=== PATIENT | female | born 1990 | race Caucasian/White ===

== ENCOUNTER 2025-07-28 12:52 | Emergency (ER) | payer MEDICAID, SELFPAY ==
[2025-07-28 12:57] VITALS: BP 155/103; PULSE 90; O2SAT 100
[2025-07-28 13:00] VITALS: BP 161/117; PULSE 82; RESP 15; O2SAT 99
[2025-07-28 13:05] VITALS: BP 155/103; PULSE 88; RESP 16; TEMP 37.2; O2SAT 99; BMI 31.2
--- NOTE | 2025-07-28 13:06 | ECG_ITS ---
APPROVED REPORT Exam: Resting ECG HR:81 bpm ECG Measurements Heart Rate 81 AXES MA 145 P 61 QRSd 89 QRS 43 QT 361 T 67 QTc 398 Conclusion SINUS RHYTHM NORMAL ECG UNCONFIRMED REPORT Normal sinus rhythm. No STEMI Electronically signed by : TO JORDAN, 07/29/2025 15:29:11
--- NOTE | 2025-07-28 13:06 | ED_ITS ---
<Statement entered by Jose Camacho MD - 07/29/25 15:37> I was consulted by the GARIMA, and we discussed the complexity of the problems being addressed. I approve the treatment and management plan for this patient's care in the emergency department, thus performing a substantive portion of the medical decision making. Jose Camacho MD Discharge Plan Disposition Patient Disposition: Home, Self-Care Condition: Good Prescriptions Prescriptions: New hydroxyzine pamoate [Vistaril] 25 mg capsule 25 mg PO Q6H PRN (Reason: anxiety) Qty: 30 0RF Referrals Follow up/Referrals: Provider,Referral, [Primary Care Provider, Medical] - See instructions Activity Restrictions/Add. Instructions Additional Instructions/Restrictions: Please return to the emergency department with any worsening signs or symptoms. Please continue to take all your medication as prescribed, please keep your follow-up with Michaela in the upcoming days. Please utilize the antianxiety medication as needed, I recommend ibuprofen Tylenol and other [id number] anti-inflammatory medication as needed for symptomatic relief. Clinical Impressions Clinical Impression: Acute drug withdrawal syndrome Instructions Patient Instructions: DI for Drug or Alcohol Withdrawal Print Language Print Language: Faroese Discharge ED Provider: Jose Camacho General Adult HPI General Chief complaint: Altered Mental Status Stated complaint: chills, nausea, light headed, High HR Time Seen by Provider: 07/28/25 13:03 Mode of Arrival: Ambulatory Source of Information: Patient and Medical Record Limitations: No Limitations History of Present Illness HPI narrative: 35-year-old female presents the emergency department with a less than 24-hour history of restlessness, insomnia, generalized fatigue and malaise, nausea heart palpitations, hot and cold flashes , that started last night, patient states that she believes she is withdrawing from kratom . Patient states that she has been utilizing kratom to 30 mg tablets daily for quite some time, she has been trying to taper herself off slowly for the last week, last dose was 15 mg tablet yesterday. Patient denies any vomiting chest pain shortness of breath, no fever no chills, no abdominal pain, no constipation or diarrhea no urinary symptomatology, patient has no real relevant past medical history takes no other medication at home, does have prior history of marijuana use, is a current everyday tobacco user (vapes), denies any other illicit drug use. States my sister of a heroin overdose I do not want to be a drug addict or addicted , initial triage vitals are unremarkable. Please note that above description of symptoms, in this electronic medical record under categorization of recalled from ER triage doctor by RN are reflective of an initial nursing assessment, however, is not reflective of my full history and physical exam that was personally taken and clarified. Consequentially, this preceding description of symptoms, which may include the patient's categorized chief complaint in the EMR, do not reflect my personal clinical impression, and the ultimate description of history of present illness and patient stated complaints should be deferred to this section of the note. Unless stated otherwise or congruent with this section of the note, additional signs, symptoms, or incongruence should be interpreted as inaccurate with my clinical impression. Onset (ago): hour(s) Related Data Previous Rx's ?Medication ?Instructions ?Recorded hydroxyzine pamoate 25 mg capsule 25 mg PO Q6H PRN anx iety #30 caps 07/28/25 (Vistaril) Allergies Allergy/AdvReac Type Severity Reaction Status Date / Time No Known Allergies Allergy Verified 07/28/25 13:12 [facility] Disclaimer: The information contained in this section may have been updated after the patient was seen, as this information can be updated by other users. Social History Smoking Status: Current every day smoker alcohol intake: never current occupational status: other Travel in the last 8 weeks?: None ROS Obtained: Yes All systems reviewed & no additional complaints except as documented Physical Exam General General appearance: alert, in no apparent distress and anxious Comment: Quite anxious and tearful appearing female Head Head exam: atraumatic and normocephalic Eye Eye exam: Present PERRL and EOMI ENT ENT exam: Present mucous membranes moist Neck Neck exam: Present normal inspection Chest Chest inspection: Present normal inspection and symmetric chest wall rise Respiratory Respiratory exam: Present normal lung sounds bilaterally; Absent respiratory distress Cardiovascular Cardiovascular exam: Present regular rate and normal rhythm; Absent tachycardia Abdominal Exam Abdominal exam: Present soft; Absent tenderness, guarding, rebound or rigidity Extremities Exam Extremities exam: Present normal inspection Neurological Exam Neurological exam: Present alert and oriented X3 Psychiatric Psychiatric exam: Present normal affect Skin Skin exam: Present warm and dry Medical Decision Making Medical Records Medical records reviewed: Yes I reviewed the patient's medical records. Screening: Per USPSTF and CDC recommendations, given [facility], it is our hospital?s policy to screen for HIV and viral Hepatitis for all patients aged 18 and over and those with ongoing risk factors. Franklyn Inquiry Pt receiving controlled substance: No Franklyn was queried for this patient: No Vital Signs: 07/28/25 12:57 07/28/25 13:00 07/28/25 13:05 Temperature 99 F Temperature Source Oral Pulse Rate 90 82 Pulse Rate [Right Radial] 88 Respiratory Rate 15 16 Blood Pressure 155/103 H 161/117 H Blood Pressure [Right Arm] 155/103 H Blood Pressure Mean [Right Arm] 120 Blood Pressure Source [Right Arm] Automatic Cuff Blood Pressure Position [Right Arm] Supine 02 Sat by Pulse Oximetry 100 99 99 Oxygen Delivery Method Room Air Room Air Room Air 07/28/25 13:30 Temperature Temperature Source Pulse Rate 97 H Pulse Rate [Right Radial] Respiratory Rate 14 Blood Pressure 143/102 H Blood Pressure [Right Arm] Blood Pressure Mean [Right Arm] Blood Pressure Source [Right Arm] Blood Pressure Position [Right Arm] 02 Sat by Pulse Oximetry 99 Oxygen Delivery Method Room Air Orders (Tests/Meds): ED MEDICATIONS Discontinued Medications Generic Name Dose Route Start Last Admin Trade Name Freq PRN Reason Stop Dose Admin Ibuprofen 600 mg 07/28/25 13:15 07/28/25 13:22 Ibuprofen 600 Mg Tablet PO 07/28/25 13:16 600 mg ONCE ONE Administration Lorazepam 1 mg 07/28/25 13:14 07/28/25 13:22 Lorazepam 1mg Tablet PO 07/28/25 13:15 1 mg ONCE ONE Administration ORDERS Category Date Time Status Consult [employer] [CONS] Routine Cons 07/28/25 13:14 Active Medical Decision Narrative: 35-year-old female presents the emergency department with concern for withdrawal symptomatology, differential diagnose include but not limited to opiate withdrawal, opioid dependence, cardiac arrhythmia, anxiety, panic attack among others. I discussed this patient's case with the attending physician I offered full laboratory studies to the patient, in full workup, patient denied at this time would like to pursue p.o. options for her symptomatology, I believe this appropriate, shared decision was utilized, patient is hemodynamically stable, able to tolerate p.o. intake at this time, will give patient p.o. fluids, 600 mg p.o. Motrin, as well as 1 mg p.o. Ativan for symptomatic relief. Will consult medical accounts receivable specialist for further recommendations with the patient's history of substance abuse/use and concern for withdrawal. Reexamination the patient at approximately 2:30 PM, patient remained hemodynamically at the time in the emergency department symptomatology has improved after medication administration here today. Patient did have consult with peers desktop support engineer. Has follow-up slated for Thursday. Will prescribe the patient hydroxyzine 25 mg p.o. Q6 as needed for anxiety type symptomatology, recommend I Profen Tylenol and other anti-inflammatory medications as needed for symptomatic relief. Patient was given strict ED return precautions. Patient voiced understanding and agreement with the current treatment plan/discharge plan Critical Care Critical Care Time Critical Care Time: No
[2025-07-28] MEDS: IBUPROFEN 600 MG TABLET PO (13:22)
--- NOTE | 2025-07-28 13:26 | PC.NURSE ---
Contacted Michaela, personnel placement specialist to come see patient. States she will be over to see patient.
[2025-07-28 13:30] VITALS: BP 143/102; PULSE 97; RESP 14; O2SAT 99
[2025-07-28 14:47] VITALS: BP 151/101; PULSE 87; RESP 16; TEMP 37.2; O2SAT 99
--- NOTE | 2025-07-28 16:08 | PEERSUPPORT ---
Peer Support Note Patient Information Patient Information: DOS: 07/28/2025 ? ED Consult: Bedside ? Last Use: 07/27/2025, Kratom 15 mg chewable tablet ? Use Hx: 6 months use of kratom, consistently 60 mg per day, sometimes up to 90mg or more. ? Current Use: Self-tapered to 15 mg per day over the last week. ? ? Previous MAT/MOUD: None ? Current MAT/MOUD: None ? Desire for MAT/MOUD: None ? Previous Treatment: None ? Support System: -- supportive and aware of situation. ? Legal Issues: None ? Potential Barriers: -Lack of connection to recovery community for support -Under lying issues- anxiety and stress, past experiences of health issues -Withdrawal symptoms- anxiousness feeling, heart racing, insomnia, feverish, aches ? Harm reduction: -Connection to [facility] Peer Support -Education on Use/Awareness to process of detox and symptoms -Safe coping skills-anxiety/depression -Treatment referrals/Resources -Primary Care List provided ? Motivation for Change: ? Pt tearfully forth coming of leading up to her situation with her health and concerns. She is mostly concerned of the withdrawals and feelings that come with it. She is able to openly discuss with her of her plan to detox at home. She is aware that she can return to the ER if symptoms do not resolve or worsen. Pt is motivated to self-educate to build self-awareness that contributes to self-control. She has removed any access of kratom at her home by alerting her and feels better knowing she done the right thing by coming to the ER. ? Pt is concerned of going home without any medication for anxiety, or something to help her with sleeping. ? Ps acted as advocate to provider, discussing concerns. Tian Snyder provider to address and discuss medications and directions for home. ? Ps provided education via email for safe coping skills, tips for avoiding use, and contact information as well as resources of Crisis Hotline 988 accessible 16/03. Pt receptive, agreeing to following phone calls, and expressing gratitude for support provided. ? Plan of Action: Refrain from use of any chemical/substance. Take medication as directed Follow up with peer support on 07/31/2025 ?
== END 2025-07-28 14:48 | disposition home or self-care (01) ==
PROVIDERS: Emergency Provider Student in an Organized Health Care Education/Training Program
DX: F19.939 Other psychoactive substance use, unspecified with withdrawal, unspecified (principal); R53.81 Other malaise; R11.0 Nausea; R00.2 Palpitations; F17.210 Nicotine dependence, cigarettes, uncomplicated
CPT/HCPCS: 93005; 99284